=== PATIENT | male | born 1945 | race Caucasian/White ===

== ENCOUNTER 2020-05-17 16:02 | Outpatient (CLI) | payer OTHER ==
--- NOTE | 2020-05-17 16:50 | CT ---
CT maxillofacial noncontrast: 05/17/2020 HISTORY: 74-year-old male with "missing tooth #8" Dental implant planning study TECHNIQUE: nonmetallic bite plate. Axial acquisition through maxilla and mandible. Oblique sagittal reconstructions. Coronal reconstructions. FINDINGS: Teeth numbers 8, 19, and 30, are absent. No periapical lucencies are identified. There is a dental implant in place of tooth #9. The anterior maxillary cortical bony covering over th at implant, is The lower two thirds of the bilateral maxillary sinuses are grossly clear. IMPRESSION: 1.) Dental implant planning study. 2) tooth #9 dental implant 3) absence of tooth #8 4) absence of teeth numbers 19 and 30..
== END 2020-05-17 16:03 | disposition home or self-care (01) ==
LOC: BICCT 16:02
PROVIDERS: ATTEND Dentist General Practice
DX: K08.109 Complete loss of teeth, unspecified cause, unspecified class (principal); Z96.5 Presence of tooth-root and mandibular implants
CPT/HCPCS: 70486